=== PATIENT | male | born 1975 | race Caucasian/White ===

== ENCOUNTER 2018-03-12 02:31 | Emergency (ER) | payer SELFPAY | END 2018-03-12 02:55 | disposition left against medical advice (07) | LOC: ER 02:31 | DX: S30.810A Abrasion of lower back and pelvis, initial encounter (principal); S40.219A Abrasion of unspecified shoulder, initial encounter; S80.812A Abrasion, left lower leg, initial encounter; S80.811A Abrasion, right lower leg, initial encounter; R47.81 Slurred speech; V43.52XA Car driver injured in collision with other type car in traffic accident, initial encounter; Y93.89 Activity, other specified; Y92.488 Other paved roadways as the place of occurrence of the external cause; Y99.8 Other external cause status | CPT/HCPCS: 99283 ==